=== PATIENT | male | born 1975 | race Caucasian/White ===

== ENCOUNTER 2022-09-21 09:43 | Inpatient (IN) | payer BC, OTHER ==
[~2022-09-21] VITALS: Ht 172.7 cm; Wt 83.9 kg
[2022-09-21 10:56] LABS: Urine WBC None Seen /hpf (0 - 3)
[2022-09-21 11:05] LABS: Albumin 4.2 g/dL (3.4-5.0); Calcium 9.1 mg/dL (8.5-10.1); Potassium 4.2 mmol/L (3.5-5.1)
[2022-09-21 11:05] LABS: Urine Bacteria NONE SEEN /hpf (None Seen); Urine Blood Negative /uL (Negative); Urine Mucus FEW (None Seen); Urine Specific Gravity 1.038 (1.001-1.035)
[2022-09-21 11:08] LABS: BUN/Creatinine Ratio 10.8
[2022-09-21] MEDS ORDERED: metroNIDAZOLE 500MG/100ML 100 ML IV ONE (11:15)
[2022-09-21] MEDS ORDERED: cefTRIAXone 1GM/50ML D5W 50 ML IV ONE ×2 (11:15→16:30)
[2022-09-21 11:29] LABS: Hematocrit 47.1 % (41.0-53.0); Hemoglobin 16.4 g/dL (13.5-17.5); Mean Corpuscular Hemoglobin 29.9 pg (28.0-32.0); Mean Corpuscular Hgb Conc. 34.7 g/dL (32.0-36.0); Mean Corpuscular Volume 86.2 fL (80.0-100.0); Red Blood Cells 5.46 10^6/uL (4.5-5.90); Red Cell Distribution Width 13.8 % (11.8-14.3); White Blood Cell 19.6 10^3/uL (4.4-10.8)
[2022-09-21 11:30] LABS: Basophils % (manual) 0 (0.0-2.0); Blast Cells 0; Eosinophils % (manual) 0 (0-7); Metamyelocytes % 0; Myelocytes % 0; Promyelocytes % 0; Reactive Lymphocytes 0
[2022-09-21] MEDS ORDERED: ONDANSETRON HCL 4 MG/2 ML VIAL IM ONE (11:45)
[2022-09-21] MEDS ORDERED: MORPHINE SULFATE INJ 2 MG/ml SYRG IM ONE (11:45)
[2022-09-21] MEDS ORDERED: CITA-73 PO (11:51)
[2022-09-21] MEDS ORDERED: ATEN50TA PO (11:51)
[2022-09-21] MEDS ORDERED: BRIM0.2S17 (11:51)
[2022-09-21] MEDS ORDERED: PANTOPRAZOLE 40 MG/10 ML VIAL INJ IV ONE (12:00)
[2022-09-21] MEDS ORDERED: MORPHINE SULFATE INJ 2 MG/ml SYRG IV PRN (12:00)
[2022-09-21 12:02] LABS: Band Neutrophils % (manual) 14; Lymphocytes % (manual) 7 (10.0-50.0); Monocytes % (manual) 3 (0-12)
[2022-09-21] MEDS ORDERED: SODIUM CHLORIDE 0.9% 1,000 ML IV ONE ×3 (12:30→18:45)
[2022-09-21] MEDS: SODIUM CHLORIDE 0.9% 1,000 ML IV SCH (13:10)
[2022-09-21] MEDS: ACETAMINOPHEN 325 MG TAB PO PRN (13:35)
[2022-09-21 13:43] LABS: Lactic Acid w/Reflex 5.9 mmol/L (0.4-2.0)
[2022-09-21] MEDS: metroNIDAZOLE 500MG/100ML 100 ML IV SCH ×2 (14:00→23:02)
[2022-09-21] MEDS ORDERED: CEFTRIAXONE SODIUM 2 GM in D5W 5% 50 ML IV ONE (15:00)
[2022-09-21] MEDS: HYDROcodone-ACET 5/325MG TAB PO PRN (15:03)
[2022-09-21] MEDS: D5W/SOD CHL 0.45%/KCL 20MEQ 1,000 ML IV SCH (15:11)
[2022-09-21 15:19] LABS: INR 1.04 (0.9-1.15); Partial Thromboplastin Time 22.7 sec (24.6-33.4)
[2022-09-22] MEDS: D5W/SOD CHL 0.45%/KCL 20MEQ 1,000 ML IV SCH ×2 (00:07→07:00)
[2022-09-22] MEDS: SODIUM CHLORIDE 0.9% 1,000 ML IV SCH ×2 (00:08→14:05)
[2022-09-22] MEDS: HYDROcodone-ACET 5/325MG TAB PO PRN ×2 (03:44→14:04)
[2022-09-22 06:07] LABS: Albumin 2.9 g/dL (3.4-5.0); BUN/Creatinine Ratio 13.1; Bilirubin, Total 1.6 mg/dL (0.2-1.0); Calcium 7.7 mg/dL (8.5-10.1); Potassium 4.6 mmol/L (3.5-5.1); Total Protein 5.7 g/dL (6.4-8.2)
[2022-09-22] MEDS: metroNIDAZOLE 500MG/100ML 100 ML IV SCH ×3 (06:08→22:40)
[2022-09-22] MEDS ORDERED: LIDOCAINE W/ EPINEPHRINE 2% INJ 20ML VIAL ONE (08:53)
[2022-09-22] MEDS ORDERED: cefTRIAXone 1GM/50ML D5W 50 ML IV ONE (10:33)
[2022-09-22] MEDS ORDERED: fentaNYL CITRATE 5 ML ONE (10:39)
[2022-09-22] MEDS ORDERED: ROCURONIUM 10MG/ML 10ML VIAL IV ONE (10:39)
[2022-09-22] MEDS ORDERED: MIDAZOLAM HCL 2MG/2ML 2ml VIAL (1mg/ml) ONE (10:39)
[2022-09-22] MEDS ORDERED: ONDANSETRON HCL 4 MG/2 ML VIAL IV PRN ×2 (11:30→11:45)
[2022-09-22] MEDS ORDERED: PROPOFOL 10 MG/ML 20 ML IV ONE (11:36)
[2022-09-22] MEDS ORDERED: GLYCOPYRROLATE 0.2 MG/ML 1ML VIAL ONE (11:36)
[2022-09-22] MEDS ORDERED: NEOSTIGMINE 1 MG/ML INJ (10mg/10ML VIAL) ONE (11:36)
[2022-09-22] MEDS ORDERED: HYDROmorphone HCL 2 MG/ML VL/or syr IV PRN ×2 (11:45)
[2022-09-22] MEDS ORDERED: ACETAMINOPHEN 325 MG RECT SUPP PR ONE (12:00)
[2022-09-22] MEDS ORDERED: ACETAMINOPHEN 120 MG RECT SUPP PR ONE (12:00)
[2022-09-22] MEDS ORDERED: ACETAMINOPHEN 650 MG RECT SUPP PR ONE (12:30)
[2022-09-22] MEDS: cefTRIAXone 1GM/50ML D5W 50 ML IV SCH (13:04)
[2022-09-22 13:15] VITALS: BP 113/74
[2022-09-22 13:24] VITALS: BP 113/74
[2022-09-22] MEDS: ATENOLOL 50 MG TAB PO SCH (14:04)
[2022-09-22] MEDS: CITALOPRAM HYDROBR 20 MG TAB PO SCH (14:04)
[2022-09-22] MEDS: PANTOPRAZOLE 40 MG/10 ML VIAL INJ IV SCH (14:04)
[2022-09-22 17:00] VITALS: BP 111/69
[2022-09-22 22:00] VITALS: BP 121/67
[2022-09-23] MEDS: SODIUM CHLORIDE 0.9% 1,000 ML IV SCH ×3 (04:30→21:03)
[2022-09-23 05:00] VITALS: BP 127/76
[2022-09-23] MEDS: metroNIDAZOLE 500MG/100ML 100 ML IV SCH ×3 (05:38→21:12)
[2022-09-23 08:00] VITALS: BP 137/86
[2022-09-23 09:00] VITALS: BP 137/26
[2022-09-23] MEDS: PANTOPRAZOLE 40 MG/10 ML VIAL INJ IV SCH (10:23)
[2022-09-23] MEDS: cefTRIAXone 1GM/50ML D5W 50 ML IV SCH (10:25)
[2022-09-23] MEDS: CITALOPRAM HYDROBR 20 MG TAB PO SCH (10:25)
[2022-09-23] MEDS: ATENOLOL 50 MG TAB PO SCH (10:27)
[2022-09-23] MEDS: ACETAMINOPHEN 325 MG TAB PO PRN (10:32)
[2022-09-23 13:00] VITALS: BP 135/89
[2022-09-23 13:23] LABS: Basophils # (auto) 0 10 ^3/uL (0-0.2); Basophils % (auto) 0.1 % (0.0-2.0); Eosinophils # (auto) 0 10 ^3/uL (0-0.8); Eosinophils % (auto) 0.1 % (0.0-7.0); Hematocrit 38.8 % (41.0-53.0); Hemoglobin 13.5 g/dL (13.5-17.5); Lymphocytes # (auto) 0.5 10 ^3/uL (0.4-5.4); Lymphocytes % (auto) 4.1 % (10.0-50.0); Mean Corpuscular Hgb Conc. 34.8 g/dL (32.0-36.0); Mean Corpuscular Volume 86.1 fL (80.0-100.0); Monocytes # (auto) 0.5 10 ^3/uL (0-1.3); Monocytes % (auto) 3.7 % (0.0-12.0); Neutrophils # (auto) 11.3 10 ^3/uL (1.6-8.6); Red Blood Cells 4.51 10^6/uL (4.5-5.90); Red Cell Distribution Width 14.1 % (11.8-14.3); White Blood Cell 12.3 10^3/uL (4.4-10.8)
[2022-09-23 13:42] LABS: Calcium 8.2 mg/dL (8.5-10.1)
[2022-09-23 13:45] LABS: BUN/Creatinine Ratio 14.5
[2022-09-23 17:00] VITALS: BP 132/89
[2022-09-23 22:00] VITALS: BP 139/94
[2022-09-24 05:00] VITALS: BP 144/96
[2022-09-24] MEDS: metroNIDAZOLE 500MG/100ML 100 ML IV SCH ×3 (05:08→21:25)
[2022-09-24 07:11] LABS: BUN/Creatinine Ratio 16.9; Calcium 8.4 mg/dL (8.5-10.1); Potassium 3.8 mmol/L (3.5-5.1)
[2022-09-24 07:29] LABS: Basophils # (auto) 0 10 ^3/uL (0-0.2); Basophils % (auto) 0.1 % (0.0-2.0); Eosinophils # (auto) 0.1 10 ^3/uL (0-0.8); Eosinophils % (auto) 0.4 % (0.0-7.0); Hematocrit 39.5 % (41.0-53.0); Hemoglobin 13.7 g/dL (13.5-17.5); Lymphocytes # (auto) 0.6 10 ^3/uL (0.4-5.4); Mean Corpuscular Hgb Conc. 34.8 g/dL (32.0-36.0); Mean Corpuscular Volume 86.3 fL (80.0-100.0); Monocytes # (auto) 0.6 10 ^3/uL (0-1.3); Monocytes % (auto) 4.3 % (0.0-12.0); Neutrophils # (auto) 12.6 10 ^3/uL (1.6-8.6); Neutrophils % (auto) 91.2 % (37.0-80.0); Red Blood Cells 4.57 10^6/uL (4.5-5.90); Red Cell Distribution Width 13.9 % (11.8-14.3); White Blood Cell 13.8 10^3/uL (4.4-10.8)
[2022-09-24 08:00] VITALS: BP 138/93
[2022-09-24 09:00] VITALS: BP 138/93
[2022-09-24] MEDS: cefTRIAXone 1GM/50ML D5W 50 ML IV SCH (09:54)
[2022-09-24] MEDS: CITALOPRAM HYDROBR 20 MG TAB PO SCH (09:55)
[2022-09-24] MEDS: ATENOLOL 50 MG TAB PO SCH (09:55)
[2022-09-24] MEDS: PANTOPRAZOLE 40 MG/10 ML VIAL INJ IV SCH (09:55)
[2022-09-24 13:00] VITALS: BP 126/80
[2022-09-24 17:00] VITALS: BP 132/82
[2022-09-24] MEDS: SODIUM CHLORIDE 0.9% 1,000 ML IV SCH (20:00)
[2022-09-24 22:09] VITALS: BP 136/84
[2022-09-25] MEDS: SODIUM CHLORIDE 0.9% 1,000 ML IV SCH ×2 (04:02→22:40)
[2022-09-25] MEDS: metroNIDAZOLE 500MG/100ML 100 ML IV SCH ×3 (05:03→21:41)
[2022-09-25 05:08] VITALS: BP 138/89
[2022-09-25 05:43] LABS: Basophils # (auto) 0 10 ^3/uL (0-0.2); Basophils % (auto) 0.2 % (0.0-2.0); Eosinophils # (auto) 0.2 10 ^3/uL (0-0.8); Eosinophils % (auto) 1.1 % (0.0-7.0); Hematocrit 41.2 % (41.0-53.0); Hemoglobin 14.5 g/dL (13.5-17.5); Lymphocytes # (auto) 1.1 10 ^3/uL (0.4-5.4); Lymphocytes % (auto) 7.4 % (10.0-50.0); Mean Corpuscular Hemoglobin 30.3 pg (28.0-32.0); Mean Corpuscular Hgb Conc. 35.2 g/dL (32.0-36.0); Mean Corpuscular Volume 86.1 fL (80.0-100.0); Monocytes # (auto) 0.9 10 ^3/uL (0-1.3); Monocytes % (auto) 5.9 % (0.0-12.0); Neutrophils # (auto) 12.3 10 ^3/uL (1.6-8.6); Neutrophils % (auto) 85.4 % (37.0-80.0); Nucleated Red Blood Cells % 0.1 %; Red Blood Cells 4.78 10^6/uL (4.5-5.90); Red Cell Distribution Width 14.5 % (11.8-14.3); White Blood Cell 14.5 10^3/uL (4.4-10.8)
[2022-09-25 05:54] LABS: Calcium 8.1 mg/dL (8.5-10.1); Potassium 3.9 mmol/L (3.5-5.1)
[2022-09-25 05:57] LABS: BUN/Creatinine Ratio 19.1
[2022-09-25 08:10] VITALS: BP 136/81
[2022-09-25] MEDS: CITALOPRAM HYDROBR 20 MG TAB PO SCH (08:41)
[2022-09-25] MEDS: cefTRIAXone 1GM/50ML D5W 50 ML IV SCH (08:41)
[2022-09-25] MEDS: ATENOLOL 50 MG TAB PO SCH (08:42)
[2022-09-25] MEDS: PANTOPRAZOLE 40 MG/10 ML VIAL INJ IV SCH (08:42)
[2022-09-25 12:38] VITALS: BP 125/97
[2022-09-25 16:15] VITALS: BP 131/81
[2022-09-25] MEDS: HYDROcodone-ACET 5/325MG TAB PO PRN (18:38)
[2022-09-25 22:00] VITALS: BP 123/84
[2022-09-26 05:00] VITALS: BP 128/86
[2022-09-26] MEDS: metroNIDAZOLE 500MG/100ML 100 ML IV SCH ×3 (05:36→21:59)
[2022-09-26 06:11] LABS: Hematocrit 43.8 % (41.0-53.0); Hemoglobin 15.1 g/dL (13.5-17.5); Mean Corpuscular Hgb Conc. 34.5 g/dL (32.0-36.0); Mean Corpuscular Volume 86.9 fL (80.0-100.0); Red Blood Cells 5.04 10^6/uL (4.5-5.90); Red Cell Distribution Width 14.4 % (11.8-14.3); White Blood Cell 14.2 10^3/uL (4.4-10.8)
[2022-09-26 06:15] LABS: Blast Cells 0; Metamyelocytes % 0; Myelocytes % 0; Promyelocytes % 0; Reactive Lymphocytes 0
[2022-09-26 07:28] LABS: Band Neutrophils % (manual) 8; Basophils % (manual) 1 (0.0-2.0); Eosinophils % (manual) 1 (0-7); Lymphocytes % (manual) 11 (10.0-50.0); Monocytes % (manual) 7 (0-12)
[2022-09-26 08:31] VITALS: BP 136/93
[2022-09-26] MEDS: cefTRIAXone 1GM/50ML D5W 50 ML IV SCH (09:39)
[2022-09-26] MEDS: CITALOPRAM HYDROBR 20 MG TAB PO SCH (09:39)
[2022-09-26] MEDS: ATENOLOL 50 MG TAB PO SCH (09:39)
[2022-09-26] MEDS: PANTOPRAZOLE 40 MG/10 ML VIAL INJ IV SCH (09:40)
[2022-09-26] MEDS: SODIUM CHLORIDE 0.9% 1,000 ML IV SCH (09:45)
[2022-09-26] MEDS ORDERED: IOHEXOL 300 MG/ML 100ML BOTTLE IJ ONE ×2 (11:00→13:50)
[2022-09-26 12:49] VITALS: BP 100/82
[2022-09-26 16:28] VITALS: BP 133/84
[2022-09-26 21:45] VITALS: BP 128/87
[2022-09-27] MEDS: SODIUM CHLORIDE 0.9% 1,000 ML IV SCH ×3 (01:20→20:45)
[2022-09-27 04:49] VITALS: BP 95/128
[2022-09-27] MEDS: metroNIDAZOLE 500MG/100ML 100 ML IV SCH (06:00)
[2022-09-27 06:22] LABS: Hematocrit 43.3 % (41.0-53.0); Hemoglobin 15.1 g/dL (13.5-17.5); Mean Corpuscular Hemoglobin 29.8 pg (28.0-32.0); Mean Corpuscular Hgb Conc. 34.8 g/dL (32.0-36.0); Mean Corpuscular Volume 85.5 fL (80.0-100.0); Red Blood Cells 5.06 10^6/uL (4.5-5.90); Red Cell Distribution Width 14.5 % (11.8-14.3); White Blood Cell 13.3 10^3/uL (4.4-10.8)
[2022-09-27 06:26] LABS: Basophils % (manual) 0 (0.0-2.0); Blast Cells 0; Myelocytes % 0; Reactive Lymphocytes 0
[2022-09-27 07:58] LABS: Band Neutrophils % (manual) 7; Eosinophils % (manual) 7 (0-7); Lymphocytes % (manual) 10 (10.0-50.0); Metamyelocytes % 2; Monocytes % (manual) 11 (0-12); Promyelocytes % 1
[2022-09-27 09:05] VITALS: BP 127/83
[2022-09-27] MEDS: cefTRIAXone 1GM/50ML D5W 50 ML IV SCH (09:25)
[2022-09-27] MEDS: ATENOLOL 50 MG TAB PO SCH (09:27)
[2022-09-27] MEDS: CITALOPRAM HYDROBR 20 MG TAB PO SCH (09:27)
[2022-09-27] MEDS ORDERED: PANTOPRAZOLE 40 MG TAB PO SCH (10:00)
[2022-09-27] MEDS ORDERED: CEFEPIME 2 GM in SODIUM CHL 0.9% 50 ML IV ONE (10:15)
[2022-09-27] MEDS ORDERED: LIDOCAINE 2% (LOCAL ANESTH.) PF 5ml SDV ONE (12:03)
[2022-09-27 13:00] VITALS: BP 131/85
[2022-09-27 16:38] VITALS: BP 133/84
[2022-09-27 22:00] VITALS: BP 121/80
[2022-09-27] MEDS ORDERED: CEFEPIME 2 GM in SODIUM CHL 0.9% 50 ML IV SCH (22:00)
[2022-09-28 05:00] VITALS: BP 127/89
[2022-09-28] MEDS: SODIUM CHLORIDE 0.9% 1,000 ML IV SCH ×3 (06:36→23:50)
[2022-09-28 07:25] LABS: Basophils # (auto) 0.1 10 ^3/uL (0-0.2); Basophils % (auto) 0.4 % (0.0-2.0); Eosinophils # (auto) 0.4 10 ^3/uL (0-0.8); Eosinophils % (auto) 2.8 % (0.0-7.0); Hematocrit 42.9 % (41.0-53.0); Hemoglobin 14.6 g/dL (13.5-17.5); Lymphocytes # (auto) 1.3 10 ^3/uL (0.4-5.4); Lymphocytes % (auto) 9.8 % (10.0-50.0); Mean Corpuscular Hemoglobin 28.9 pg (28.0-32.0); Mean Corpuscular Hgb Conc. 33.9 g/dL (32.0-36.0); Mean Corpuscular Volume 85.2 fL (80.0-100.0); Monocytes # (auto) 1.3 10 ^3/uL (0-1.3); Monocytes % (auto) 9.7 % (0.0-12.0); Neutrophils # (auto) 10.2 10 ^3/uL (1.6-8.6); Neutrophils % (auto) 77.3 % (37.0-80.0); Nucleated Red Blood Cells % 0.2 %; Red Blood Cells 5.04 10^6/uL (4.5-5.90); Red Cell Distribution Width 14.1 % (11.8-14.3); White Blood Cell 13.2 10^3/uL (4.4-10.8)
[2022-09-28 07:44] LABS: Calcium 8.1 mg/dL (8.5-10.1)
[2022-09-28 07:45] LABS: BUN/Creatinine Ratio 19.2
[2022-09-28 09:00] VITALS: BP 127/87
[2022-09-28] MEDS ORDERED: SULFAMETHOX W/TRIMETH(800/160MG) DS TAB PO SCH (10:00)
[2022-09-28] MEDS: ATENOLOL 50 MG TAB PO SCH (10:49)
[2022-09-28] MEDS: CITALOPRAM HYDROBR 20 MG TAB PO SCH (10:49)
[2022-09-28] MEDS: PANTOPRAZOLE 40 MG/10 ML VIAL INJ IV SCH (10:50)
[2022-09-28 11:53] LABS: Urine Bacteria NONE SEEN /hpf (None Seen); Urine Blood Negative /uL (Negative); Urine WBC <1 /hpf (0 - 3)
[2022-09-28 13:00] VITALS: BP 127/90
[2022-09-28] MEDS: metroNIDAZOLE 500 MG TAB PO SCH ×2 (15:00→22:11)
[2022-09-28] MEDS: levoFLOXacin 500MG 100 ML IV SCH (16:29)
[2022-09-28 17:00] VITALS: BP 126/44
[2022-09-28 22:00] VITALS: BP 122/82
[2022-09-29 05:00] VITALS: BP 125/77
[2022-09-29] MEDS: metroNIDAZOLE 500 MG TAB PO SCH ×3 (06:24→21:26)
[2022-09-29 07:06] LABS: Hemoglobin 14.8 g/dL (13.5-17.5); Mean Corpuscular Hgb Conc. 34.3 g/dL (32.0-36.0); White Blood Cell 14.5 10^3/uL (4.4-10.8)
[2022-09-29 07:10] LABS: Hematocrit 43.3 % (41.0-53.0); Mean Corpuscular Hemoglobin 29.2 pg (28.0-32.0); Mean Corpuscular Volume 85.2 fL (80.0-100.0); Red Blood Cells 5.08 10^6/uL (4.5-5.90); Red Cell Distribution Width 13.8 % (11.8-14.3)
[2022-09-29 07:18] LABS: Basophils % (manual) 0 (0.0-2.0); Blast Cells 0; Metamyelocytes % 0; Promyelocytes % 0; Reactive Lymphocytes 0
[2022-09-29 08:00] VITALS: BP 129/92
[2022-09-29 08:33] LABS: Band Neutrophils % (manual) 14; Eosinophils % (manual) 1 (0-7); Lymphocytes % (manual) 9 (10.0-50.0); Monocytes % (manual) 8 (0-12); Myelocytes % 1
[2022-09-29] MEDS: ATENOLOL 50 MG TAB PO SCH (09:39)
[2022-09-29] MEDS: levoFLOXacin 500MG 100 ML IV SCH (09:39)
[2022-09-29] MEDS: CITALOPRAM HYDROBR 20 MG TAB PO SCH (09:39)
[2022-09-29] MEDS: PANTOPRAZOLE 40 MG/10 ML VIAL INJ IV SCH (09:39)
[2022-09-29] MEDS: SODIUM CHLORIDE 0.9% 1,000 ML IV SCH ×2 (09:40→23:46)
[2022-09-29 12:00] VITALS: BP 129/85
[2022-09-29 16:00] VITALS: BP 113/75
[2022-09-29 20:00] VITALS: BP 129/92
[2022-09-29 22:00] VITALS: BP 130/81
[2022-09-30 05:00] VITALS: BP 119/78
[2022-09-30] MEDS: metroNIDAZOLE 500 MG TAB PO SCH ×3 (05:40→22:16)
[2022-09-30 09:00] VITALS: BP 126/84
[2022-09-30] MEDS: PANTOPRAZOLE 40 MG/10 ML VIAL INJ IV SCH (09:44)
[2022-09-30] MEDS: CITALOPRAM HYDROBR 20 MG TAB PO SCH (09:44)
[2022-09-30] MEDS: levoFLOXacin 500MG 100 ML IV SCH (09:44)
[2022-09-30] MEDS: ATENOLOL 50 MG TAB PO SCH (09:45)
[2022-09-30 11:45] LABS: Basophils # (auto) 0.1 10 ^3/uL (0-0.2); Basophils % (auto) 0.5 % (0.0-2.0); Eosinophils # (auto) 0.2 10 ^3/uL (0-0.8); Eosinophils % (auto) 1.3 % (0.0-7.0); Hematocrit 40.2 % (41.0-53.0); Hemoglobin 13.8 g/dL (13.5-17.5); Lymphocytes # (auto) 1.4 10 ^3/uL (0.4-5.4); Lymphocytes % (auto) 9.7 % (10.0-50.0); Mean Corpuscular Hgb Conc. 34.4 g/dL (32.0-36.0); Mean Corpuscular Volume 84.4 fL (80.0-100.0); Monocytes # (auto) 1.2 10 ^3/uL (0-1.3); Neutrophils % (auto) 80.5 % (37.0-80.0); Nucleated Red Blood Cells % 0.2 %; Red Blood Cells 4.76 10^6/uL (4.5-5.90); Red Cell Distribution Width 13.7 % (11.8-14.3); White Blood Cell 14.9 10^3/uL (4.4-10.8)
[2022-09-30 13:00] VITALS: BP 138/84
[2022-09-30 16:19] VITALS: BP 123/79
[2022-09-30 20:00] VITALS: BP 126/84
[2022-09-30 22:00] VITALS: BP 117/73
[2022-10-01 05:00] VITALS: BP 118/78
[2022-10-01] MEDS: metroNIDAZOLE 500 MG TAB PO SCH ×2 (06:39→14:00)
[2022-10-01 09:00] VITALS: BP 127/90
[2022-10-01] MEDS: ATENOLOL 50 MG TAB PO SCH (09:33)
[2022-10-01] MEDS: CITALOPRAM HYDROBR 20 MG TAB PO SCH (09:33)
[2022-10-01] MEDS: levoFLOXacin 500MG 100 ML IV SCH (09:33)
[2022-10-01] MEDS: PANTOPRAZOLE 40 MG/10 ML VIAL INJ IV SCH (09:33)
[2022-10-01] MEDS ORDERED: METR500T PO (10:50)
[2022-10-01] MEDS ORDERED: LEVO500T31 PO (10:50)
[2022-10-01 12:18] VITALS: BP 127/85
== END 2022-10-01 14:00 | disposition home or self-care (01) | DRG 853 ==
LOC: EDBD 09:43 → ER 09:43 → OVERFLOW 11:50 → EAST 09-22 13:12
PROVIDERS: ADMIT Nurse Practitioner Family; ATTEND Internal Medicine
PROC: 0DTJ4ZZ Resection of Appendix, Percutaneous Endoscopic Approach (ICD-10-PCS; principal; 2022-09-22 10:37)
PROC: 0W9G3ZZ Drainage of Peritoneal Cavity, Percutaneous Approach (ICD-10-PCS; 2022-09-27)
DX: A41.9 Sepsis, unspecified organism (principal); K35.33 Acute appendicitis with perforation, localized peritonitis, and gangrene, with abscess; N17.0 Acute kidney failure with tubular necrosis; E87.1 Hypo-osmolality and hyponatremia; K35.31 Acute appendicitis with localized peritonitis and gangrene, without perforation; D69.6 Thrombocytopenia, unspecified; E66.9 Obesity, unspecified; I10 Essential (primary) hypertension; Z20.822 Contact with and (suspected) exposure to COVID-19; B96.20 Unspecified Escherichia coli [E. coli] as the cause of diseases classified elsewhere; Z88.1 Allergy status to other antibiotic agents; Z88.8 Allergy status to other drugs, medicaments and biological substances; Z68.31 Body mass index [BMI] 31.0-31.9, adult
CPT/HCPCS: 10005; 36415; 71045; 72192; 74176; 74177; 77012; 80048; 80053; 81001; 83605; 83690; 83986; 85007; 85025; 85027; 85610; 85730; 86850; 86900; 86901; 87040; 87070; 87075; 87077; 87081; 87186; 87205; 87426; 89051; 97163; C9113; G0378; J0696; J1956; J2001; J2250; J2405; J2704; J3490; J7060

== ENCOUNTER → 2022-10-07 | Outpatient (CLI) | payer BC ==
[~2022-10-07] MED LIST: ATEN50TA PO; BRIM0.2S17; CITA-73 PO; LEVO500T31 PO; METR500T PO
[2022-10-07 11:52] LABS: Basophils # (auto) 0.1 10 ^3/uL (0-0.2); Basophils % (auto) 1.5 % (0.0-2.0); Eosinophils # (auto) 0.1 10 ^3/uL (0-0.8); Eosinophils % (auto) 2.1 % (0.0-7.0); Hematocrit 41.9 % (41.0-53.0); Hemoglobin 14.2 g/dL (13.5-17.5); Lymphocytes # (auto) 1.6 10 ^3/uL (0.4-5.4); Lymphocytes % (auto) 23.9 % (10.0-50.0); Mean Corpuscular Hemoglobin 28.9 pg (28.0-32.0); Mean Corpuscular Hgb Conc. 33.8 g/dL (32.0-36.0); Mean Corpuscular Volume 85.5 fL (80.0-100.0); Monocytes # (auto) 0.5 10 ^3/uL (0-1.3); Monocytes % (auto) 7.3 % (0.0-12.0); Neutrophils # (auto) 4.3 10 ^3/uL (1.6-8.6); Neutrophils % (auto) 65.2 % (37.0-80.0); Nucleated Red Blood Cells % 0.1 %; Red Cell Distribution Width 13.8 % (11.8-14.3); White Blood Cell 6.7 10^3/uL (4.4-10.8)
[2022-10-07 15:08] LABS: BUN/Creatinine Ratio 12.5; Calcium 8.8 mg/dL (8.5-10.1); Potassium 4.5 mmol/L (3.5-5.1)
== END | disposition home or self-care (01) ==
LOC: LAB 10:58
PROVIDERS: ATTEND Internal Medicine
DX: I10 Essential (primary) hypertension (principal)
CPT/HCPCS: 36415; 80048; 85025